=== PATIENT | male | born 1940 | race Caucasian/White ===

== ENCOUNTER → 2017-09-25 | Outpatient (CLI) | payer OTHER | LOC: SBRMNEURO 21:00 | PROVIDERS: ATTEND Psychiatry & Neurology Sleep Medicine | DX: G47.33 Obstructive sleep apnea (adult) (pediatric) (principal) ==

== ENCOUNTER 2018-10-22 09:58 | Day surgery (SDC) | payer OTHER ==
[2018-10-22] MEDS ORDERED: FAMOTIDINE 20 MG TAB PO ONE (09:59)
[2018-10-22] MEDS ORDERED: NS 1,000 ML IV ONE (09:59)
[2018-10-22] MEDS ORDERED: DIAZEPAM 5 MG TAB PO ONE (09:59)
[2018-10-22] MEDS ORDERED: diphenhydrAMINE 25 MG CAP PO ONE (09:59)
[2018-10-22] MEDS ORDERED: ASPIRIN EC 325 MG TAB PO ONE (09:59)
[2018-10-22 10:39] LABS: PLATELET COUNT 194 10^3/uL (150-400)
[2018-10-22 10:57] LABS: INR 0.98 (0.83-1.16); PROTIME(PATIENT) 12.6 SEC (12.0-15.0)
[2018-10-22] MEDS ORDERED: fentaNYL 100 MCG/2 ML INJ ONE (11:36)
[2018-10-22] MEDS ORDERED: IOPAMIDOL (ISOVUE-370) 150 ML BTL IV ONE ×2 (11:36→11:53)
[2018-10-22] MEDS ORDERED: MIDAZOLAM 2 MG/2 ML VIAL ONE (11:36)
[2018-10-22] MEDS ORDERED: LIDOCAINE 1% 300 MG/30 ML SDV ONE (11:36)
--- NOTE | 2018-10-22 11:51 | PDHPUP ---
History & Physical Update H&P update statement: This history and physical update is based on an assessment of the patient which was completed after admission or registration (within 24 hours), but prior to the surgery/procedure. H&P update: H&P reviewed & patient examined, no change in patient's condition since H&P completed
[2018-10-22] MEDS ORDERED: HEPARIN 10,000 UNIT/10 ML MDV (1,000 UNIT/ML) ONE (11:52)
[2018-10-22] MEDS ORDERED: VERAPAMIL 5 MG/2 ML VIAL ONE (11:52)
--- NOTE | 2018-10-22 11:52 | PDPROPOC ---
Sedation Plan of Care Sedation Plan of Care: vital signs stable, mental status noted, patient educated of risks, benefits, alternatives, patient can tolerate sedation ASA Classification: ASA 1 Planned drugs: fentanyl, midazolam Mallampati Score: Class 1 Mallampati Reference Image: Patient passed 3-3-2 rule?: Yes
--- NOTE | 2018-10-22 13:08 | PDDXCAT ---
Diagnostic Cath Note - . Date: 10/22/18 Stock Counter: Zach Indication: other (Referral for consideration of high risk medication; high risk myocardial perfusion imaging study.) - Procedure Access: right wrist Procedure: left heart catheterization, coronary angiography, left ventriculogram - Materials Left Heart Cath size: 5F Left Heart Cath materials: JL3.5, JR4.0, pigtail - Findings-Left Heart Catheterization LM: Moderate caliber vessel. Appropriate bifurcation into the LAD and circumflex. Minimal luminal irregularities without obstructive lesions. LAD: Large caliber transapical vessel. 2 diagonal branches identified. There is a high-grade lesion involving the principal septal preparation operator right at the ostium. Additionally, there is a 90% ostial diagonal lesion. In the proximal LAD there is diffuse disease up to 50%. LCX: Moderate caliber proximal vessel. Becomes diminutive after the origin of a 2nd obtuse marginal branch. The 2nd obtuse marginal branch is a moderate caliber vessel. There is an 80% proximal lesion. RCA: Proximally occluded. Extensive distal collateralization from the septal arcade. LVEF: 45-50%. Wall motion: Akinesis of the basal diaphragmatic segment. Complications: None. Estimated blood loss: <50ml Closure method: TR Band Assessment: 1. Multivessel, branch vessel coronary artery disease characterized by occlusion of the proximal right coronary artery and involvement of the 2nd obtuse marginal branch and diagonal system in the left coronary circulation. 2. Mildly reduced LV systolic function with an ejection fraction of 45-50% with akinesis of the basal diaphragmatic segment. 3. Stress MPI evidence of a largely fixed inferolateral defect. 4. No clinical signs or symptoms of underlying ischemia or heart failure. Plan: At this point, I think would be best that this patient be managed medically. Based on the results of this study he is really not a candidate for institution of a sodium channel cameron which was being considered for therapy of his seizure disorder.
--- NOTE | 2018-10-22 18:29 | CPEKG ---
Test Reason : OPEN Blood Pressure : / mmHG Vent. Rate : 061 BPM Atrial Rate : 060 BPM P-R Int : 148 ms QRS Dur : 142 ms QT Int : 459 ms P-R-T Axes : 083 062 010 degrees QTc Int : 463 ms Sinus rhythm Right bundle branch block Confirmed by Zi Vaughn ([id number]) on 10/22/2018 6:29:24 PM Referred By: Abdiaziz Serrano Confirmed By:Zi Vaughn
== END 2018-10-22 15:33 | disposition home or self-care (01) ==
LOC: FCATH 09:58
PROVIDERS: ATTEND Internal Medicine Cardiovascular Disease
DX: I25.10 Atherosclerotic heart disease of native coronary artery without angina pectoris (principal); R94.39 Abnormal result of other cardiovascular function study; G40.909 Epilepsy, unspecified, not intractable, without status epilepticus
CPT/HCPCS: J1644; J2250; J3010; Q9967